=== PATIENT | female | born 1965 | race Caucasian/White ===

== ENCOUNTER 2016-04-29 20:12 | Emergency (ER) | payer BC ==
[2016-04-29 20:27] VITALS: BP 127/78
--- NOTE | 2016-04-29 20:47 | UC ---
Throat Pain/Nasal Per HPI - HPI Summary HPI Summary: ST and chills and malaise today. No known Strep contacts. Recent diagnosis of pancreatic failure and Type I DM, but hasn't been able to tolerate insulin. No measured fevers today. Was told by her doctor to "get right in to be seen if you have any signs of infection." - History of Current Complaint Chief Complaint: UCGeneralIllness Stated Complaint: THROAT Time Seen by Provider: 04/29/16 20:16 Hx Obtained From: Patient Hx Last Menstrual Period: 03/02/14 Onset/Duration: Gradual Onset, Lasting Days - 1 Severity: Mild Cough: None Associated Signs & Symptoms: Positive: Dysphagia, Hoarseness, Fever - subjective. Negative: FB Sensation, Drooling, Sinus Discomfort, Nasal Discharge , Vomiting, Rash - Epiglottits Risk Factors Epiglottis Risk Factors: Negative - Allergies/Home Medications Allergies/Adverse Reactions: Allergies Allergy/AdvReac Type Severity Reaction Status Date / Time Penicillins Allergy Intermediate Hives Verified 02/17/16 11:17 Azithromycin [From Zithromax] Allergy Hives Verified 04/29/16 20:28 Insulin Glargine Allergy Hives Verified 04/29/16 20:28 [From Lantus] Metformin Allergy Hives Verified 04/29/16 20:28 Home Medications: Home Medications glipiZIDE TAB* [Glucotrol TAB*] 5 mg PO DAILY 04/29/16 [History Confirmed ] PMH/Surg Hx/FS Hx/Imm Hx Endocrine History Of: Reports: Diabetes Respiratory History Of: Reports: Asthma - Surgical History Surgical History: Yes Surgery Procedure, Year, and Place: LEFT BREAST BIOPSY. C SECTIONS X'S 2 - Family History Known Family History: Positive: Cardiac Disease - mother has had bypass and stroke - Social History Occupation: Employed Full-time Lives: With Family Alcohol Use: None Substance Use Type: None Smoking Status (MU): Never Smoked Tobacco Household Exposure Type: Cigarettes Review of Systems Constitutional: Fever, Chills, Fatigue Skin: Negative Eyes: Negative ENT: Sore Throat Respiratory: Negative Cardiovascular: Negative Gastrointestinal: Negative Genitourinary: Negative Motor: Negative Neurovascular: Negative Musculoskeletal: Myalgia Neurological: Negative Psychological: Negative All Other Systems Reviewed And Are Negative: Yes Physical Exam Triage Information Reviewed: Yes Appearance: Well-Appearing, No Pain Distress, Well-Nourished Vital Signs: Initial Vital Signs Temp 99.3 F 04/29/16 20:19 Pulse 95 04/29/16 20:19 Resp 16 04/29/16 20:19 BP 127/78 04/29/16 20:19 Pulse Ox 99 04/29/16 20:19 Vital Signs Reviewed: Yes Eye Exam: Normal ENT Exam: Normal ENT: Positive: Hearing grossly normal, Pharyngeal erythema, TMs normal. Negative: Tonsillar swelling, Tonsillar exudate, Trismus, Muffled/hoarse voice Neck exam: Normal Neck: Positive: Supple Respiratory Exam: Normal Respiratory: Positive: Lungs clear, Normal breath sounds, No respiratory distress Musculoskeletal Exam: Normal Neurological Exam: Normal Psychological Exam: Normal Skin Exam: Normal Diagnostics - Laboratory Diagnostic Studies Completed/Ordered: Strep pos Throat Pain/Nasal Course/Dx - Differential Dx/Diagnosis Provider Diagnoses: Strep throat Discharge - Discharge Plan Condition: Stable Disposition: HOME Prescriptions: Cephalexin CAP* [Keflex CAP*] 500 mg PO TID #30 cap Patient Education Materials: Strep Throat (ED) Referrals: Erinn Blair MD [Primary Care Provider] -
[2016-04-29] MEDS ORDERED: Cephalexin CAP* 500 MG PO ONE (20:50)
== END 2016-04-29 21:05 | disposition home or self-care (01) ==
LOC: UCCORT 20:12
DX: J02.0 Streptococcal pharyngitis (principal); Z88.1 Allergy status to other antibiotic agents; Z88.0 Allergy status to penicillin; Z88.8 Allergy status to other drugs, medicaments and biological substances; Z77.22 Contact with and (suspected) exposure to environmental tobacco smoke (acute) (chronic)
CPT/HCPCS: 87651; 99212; A9270-GY; G0463

== ENCOUNTER 2018-03-26 17:05 | Emergency (ER) | payer BC ==
[2018-03-26 17:32] VITALS: BP 123/82
--- NOTE | 2018-03-26 18:12 | UC ---
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 " -she has long standing hirostry of asthma but hasnt taken her prescribed maintenance dose of advair in a long time bc she doesnt like to take meds. she has alb but needs a RF. states she hasnt used that in a long time either as she is trying to be good about not using her medication. -denies feeling sick in any other way. no f/c. no wheezing. tight dry cough. + continious nightt rupesh cough x several months. no sinus pain/pressure. no ST. no ear pain. 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 takes januvia. BSs well controlled she repiorts but prone to yeast infections bc of this. usually treated well w/ diflcuan. denies risk of STD. - History of Current Complaint Chief Complaint: UCGeneralIllness Stated Complaint: COUGH AND PERSONAL Time Seen by Provider: 03/26/18 18:03 Hx Last Menstrual Period: 03/02/14 Pain Intensity: 8 - Allergies/Home Medications Allergies/Adverse Reactions: Allergies Allergy/AdvReac Type Severity Reaction Status Date / Time MS Penicillins [Penicillins] Allergy Intermediate Hives Verified 03/26/18 17:32 MS Azithromycin Allergy Hives Verified 03/26/18 17:32 [From Zithromax] MS Insulin Glargine Allergy Hives Verified 03/26/18 17:32 [From Lantus] MS Metformin [Metformin] Allergy Hives Verified 03/26/18 17:32 Home Medications: Home Medications Lisinopril [Lisinopril 2.5 MG-] 2.5 mg PO DAILY 03/26/18 [History Confirmed 02/01] Sitagliptin Phosphate [Januvia] 50 mg PO DAILY 03/26/18 [History Confirmed 03/26] PMH/Surg Hx/FS Hx/Imm Hx Previously Healthy: Yes Endocrine History: Diabetes Respiratory History: Asthma - Surgical History Surgical History: Yes Surgery Procedure, Year, and Place: LEFT BREAST BIOPSY. C SECTIONS X'S 2 - Family History Known Family History: Positive: Cardiac Disease - mother has had bypass and stroke - Social History Alcohol Use: None Substance Use Type: None Smoking Status (MU): Never Smoked Tobacco Household Exposure Type: Cigarettes Review of Systems All Other Systems Reviewed And Are Negative: Yes Constitutional: Positive: Negative Skin: Positive: Negative Eyes: Positive: Negative ENT: Positive: Negative Respiratory: Positive: Cough Cardiovascular: Positive: Negative Gastrointestinal: Positive: Negative Genitourinary: Positive: Negative Motor: Positive: Negative Neurovascular: Positive: Negative Musculoskeletal: Positive: Negative Neurological: Positive: Negative Psychological: Positive: Negative Is Patient Immunocompromised?: No Physical Exam Triage Information Reviewed: Yes Appearance: Ill-Appearing - bc of moderate cough. very pleasnat. no stridor Vital Signs: Initial Vital Signs Temp 97.5 F 03/26/18 17:29 Pulse 91 03/26/18 17:29 Resp 20 03/26/18 17:29 BP 123/82 03/26/18 17:29 Pulse Ox 99 03/26/18 17:29 Vital Signs Reviewed: Yes ENT Exam: Normal ENT: Positive: Pharynx normal, TMs normal, Uvula midline. Negative: Nasal congestion, Nasal drainage, Tonsillar swelling, Tonsillar exudate, Hoarse voice , Sinus tenderness Neck exam: Normal Neck: Positive: Supple, Nontender, No Lymphadenopathy Respiratory: Positive: Lungs clear, No respiratory distress, No accessory muscle use, Decreased breath sounds - mild b/l. Negative: Crackles, Rhonchi, Stridor, Wheezing Cardiovascular Exam: Normal Cardiovascular: Positive: RRR, No Murmur, Pulses Normal Abdomen Description: Positive: Nontender, Soft Pelvic Exam: Positive: Other - deferred Musculoskeletal Exam: Normal Neurological Exam: Normal Psychological Exam: Normal Skin Exam: Normal UC Diagnostic Evaluation - Laboratory O2 Sat by Pulse Oximetry: 99 Respiratory Course/Dx - Course Course Of Treatment: ASthma - long discussion educating her on asthma treatment. I dont think she has an exacerbation. if anything a viral URI. I suspect this is her baselien asthma that has been untreated for months. restart advair at 250, she is uncertain what dose she was prescribed in past. she should f/u with her PCP for PFTs, possible CXR and determination of appropriate dose for her - Differential Dx/Diagnosis Differential Diagnosis/HQI/PQRI: Asthma, Bronchitis, Sinusitis Provider Diagnosis: Asthma Discharge - Sign-Out/Discharge Documenting (check all that apply): Patient Departure All imaging exams completed and their final reports reviewed: No Studies - Discharge Plan Condition: Stable Disposition: HOME Prescriptions: Albuterol HFA INHALER* [Ventolin HFA Inhaler*] 2 puff INH Q4H PRN #1 mdi PRN Reason: Sob/Wheezing Albuterol HFA INHALER* [Ventolin HFA Inhaler*] 2 puff INH Q4H PRN 30 Days #1 mdi PRN Reason: Cough Fluconazole [Diflucan] 150 mg PO ONCE #1 tab Fluticasone-Salmeterol 250-50* [Advair Diskus 250-50*] 1 puff INH BID 30 Days # 1 diskus Patient Education Materials: Asthma (ED), Yeast Infection (ED) Referrals: Erinn Blair MD [Primary Care Provider] - Additional Instructions: -We talked about the importance of daily maintenance of inhalers for your lung health. This is the advair. You were not certain what dose of advair you were prescribed in the past so you should follow up with your primary care doctor to determine what the appropriate dose is for you. Make sure you risne your mouth out every use. The albuterol is loraine resuce inhaler that is used when the advair does not control your daily symptoms. - Billing Disposition and Condition Condition: STABLE Disposition: Home
== END 2018-03-26 18:46 | disposition home or self-care (01) ==
LOC: UCCORT 17:05
DX: J45.909 Unspecified asthma, uncomplicated (principal); Z88.0 Allergy status to penicillin; Z88.1 Allergy status to other antibiotic agents; Z88.8 Allergy status to other drugs, medicaments and biological substances; Z79.84 Long term (current) use of oral hypoglycemic drugs
CPT/HCPCS: 99212; G0463

== ENCOUNTER 2018-12-09 18:36 | Emergency (ER) | payer BC ==
--- OUTSIDE RECORDS SUMMARY | 2018-12-09 18:44 | XMS REPORT | Continuity of Care Document ---
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 Problems Active Problems Provider Date Restless legs Erinn Blair MD Onset: 09/21/2009 Allergic asthma without status asthmaticus Erinn Blair MD Onset: 2005 Heartburn Erinn Blair MD Onset: 07/18/2005 Obesity Erinn Blair MD Onset: 07/18/2005 Herpesviral vesicular dermatitis Erinn Blair MD Onset: 04/10/2017 Mild intermittent asthma Erinn Blair MD Onset: 07/15/2016 Type 2 diabetes mellitus Ernin Blair MD Onset: 06/06/2016 Mild intermittent asthma Erinn Blair MD Onset: 02/09/2015 History of dysplasia of cervix Erinn Blair MD Onset: 02/09/2015 Social History Type Date Description Comments Sex Unknown Tobacco Use Start: Unknown Never Smoked Cigarettes ETOH Use Occasionally consumes alcohol Tobacco Use Start: Unknown Patient has never smoked Recreational Drug Use Denies Drug Use Exercise Type/Frequency Exercises sporadically walks most days; 02/09/15 counselled 150min per week, 10k steps per day [facility] Allergies, Adverse Reactions, Alerts Active Allergies Reaction Severity Comments Date Amoxicillin 04/08/2014 Clindamycin HIVES 02/09/2015 Lantus Urticaria Severe 04/18/2016 Metformin Urticaria Severe 04/18/2016 Azithromycin 05/07/2018 Latex Hives Moderate 08/11/2018 Medications Active Medications SIG Qnty Indications Ordering Date Provider BD Pen use with trulicity 12units Johnnie, 11/08/2018 Needle/Anisa/Ultra MD Erinn -Fine/32G X 4mm 32G X 4 mm Misc Trulicity inject 0.75 mg 1.5ml E11.9 Johnnie, 08/11/2018 subcutaneously once MD Erinn 0.75mg/0.5ML weekly Solution Pen-Inject E11.65 Pen [place] 05/29" use as directed 12units E11.9 Erinn Blair MD 08/11 31G once weekly with X 5 mm Misc trulicity sc Pravastatin Sodium 1 by mouth daily 90tabs E11.65 Erinn Blair MD 10mg Tablets Freestyle Lancets Test Daily And as 100units E11.65 Erinn Blair MD 06/27/2018 0 Needed Glipizide take 1 tablet by 90tabs E11.65 Erinn Blair MD 05/17/2018 10mg mouth every Tablets morning E11.9 Benazepril HCL 1 by mouth daily 90tabs E11.9 Erinn Blair MD 2018 5mg in the morning Tablets Januvia 1 by mouth every 90tabs E11.9 Erinn Blair MD 04/16/2018 100mg Tablets day in them morning E11.65 Freestyle Lite Test use as directed 100units E11.9 Erinn Blair, 04/10 once a day and as Strips needed Famciclovir 3 by mouth once 3tabs B00.1 Erinn Blair, 08/22/2016 500mg within 24 hours of Tablets cold sore Freestyle Lite Blood Use as Directed 100units E11.9 Erinn Blair, Glucose Once A Days And as 0 Strips Needed Lancet Device With test daily and as 1units E11.9 Erinn Blair, 2016 Ejector needed. MD Guzman Lancets Super Thin test daily and as 100units E11.9 Erinn Blair, 28G needed MD Lozano 28G [facility] Freestyle Lite Test test daily and as 100units E11.9 Erinn Blair, directed. Strips Calcium Carbonate 1 po qd Z01.411 Erinn Blair, 12/11/2005 1250mg/5ML Suspension Albuterol Sulfate 1 vial via 45units J45.20 Unknown nebulizer every (2.5mg/3ML) 0.083% 4-6 hours as Nebulizer needed wheezing Advair Diskus 1 puff twice a day J45.20 Unknown 250-50mcg/Dose Aerosol History Medications BD Ultra Fine Pen inject trulicity 12units E11.9 Erinn Blair, 2018 - [place] weekly sc 11/08/2018 Oseltamivir 1 by mouth twice 14caps J09.x2 Erinn Blair, 07/12/2018 - Phosphate a day 07/19/2018 75mg Capsules Contrave 1 po daily for 1 120tabs E66.9 Erinn Blair, 06/04/2018 - 8-90mg week, 1 po bid 06/05/2018 Tablets ER 12HR for 1 week, 2 in am 1 in pm for 1 week then 2 po bid; both doses before 5pm E11.65 Immunizations CPT Code Status Date Vaccine Reaction Lot # [id number] Given 08/25/2018 Shingrix (Shingles) Zoster Vaccine savage at pharmacy HZV, Recombinant, Subunit, Adj 62769 Given 12/07/2017 Influenza Virus Vaccine,Quadrivalent,Split,Preserv Free, 0.5mL,Im Q2039 Given 11/28/2016 Flu Vaccine NOS per pt Q2037 Given 01/13/2015 Fluvirin Immunization 24955 Given 11/24/2011 Pneumococcal 23 Immunization Adult Or Immunosuppressed Patient 55538 Given 11/21/2011 Afluria Or Fluvirin Flu Vac Intramuscular 59215 Given 12/27/2010 Tdap (Adacel) Ages 7 And Above Only 42935 Given 12/27/2010 Afluria Or Fluvirin Flu Vac Intramuscular 75695 Given 11/30/2001 Immunization Td 7 Yrs Or Older 59651 Given Unknown Influenza Virus, 6-35 Months Dosage For Intramuscular Or Jet Q2039 Refused 11/08/2018 Flu Vaccine NOS will get at pharmacy 77324 Refused 05/07/2018 Shingrix (Shingles) Zoster Vaccine will get at pharmacy HZV, Recombinant, Subunit, Adj 15176 Refused 04/08/2016 Influenza Virus Vaccine,Quadrivalent,Split,Preserv Free, 0.5mL,Im Vital Signs Date Vital Result Comment 11/08/2018 9:36am Weight 172.00 lb Heart Rate 78 /min BP Systolic 112 mmHg BP Diastolic 76 mmHg Respiratory Rate 16 /min Height 60.5 inches 5'0.50" BMI (Body Mass Index) 33.0 kg/m2 08/11/2018 3:33pm Weight 169.00 lb Heart Rate 70 /min BP Systolic 112 mmHg BP Diastolic 72 mmHg Respiratory Rate 17 /min Height 60.5 inches 5'0.50" BMI (Body Mass Index) 32.5 kg/m2 Results Test Date Facility Test Result H/L Range Note Comprehensive Met 08/14/2018 [facility] Glucose 114 mg/ dL High 74-106 1 Panel-[facility]CMG (315)- - BUN 13 mg/dL Normal 7-18 Creatinine 0.8 mg/dL Normal 0.6-1.3 Glom Filtration Rate, Estimate >60 mL/min >60 If >60 mL/min >60 2 BUN/Creat 16.2 ratio Sodium 137 mmol/L Normal 136-145 Potassium 4.2 mmol/L Normal 3.5-5.1 Chloride 106 mmol/L Normal 98-107 Carbon Dioxide 25 mmol/L Normal 21-32 Anion Gap 6 mEq/L Low 8-16 Calcium 9.2 mg/dL Normal 8.5-10.1 Total Protein 8.3 g/dL High 6.4-8.2 Albumin 3.8 g/dL Normal 3.4-5.0 Globulin 4.5 g/dL High 1.9-4.3 Alb/Glob 0.8 ratio Bilirubin,Total 0.5 mg/dL Normal 0.2-1.0 Sgot/Ast 26 U/L Normal 15-37 SGPT/Alt 47 U/L Normal 12-78 Alkaline Phosphatase 106 U/L Normal 45-117 Lipid 08/14/2018 [facility] Cholesterol 161 mg/dL < 200 3 (315)- - Triglycerides 92 mg/dL <150 4 HDL Cholesterol 42 mg/dL >40 5 LDL-Cholesterol 101 mg/dL < 100 6 Hemoglobin A1c 08/14/2018 [facility] Glycohemoglobin (A1c ) 6.6 % High 4.2-6.3 7 (315)- - eAG 143 mg/dL Throat PO Culture -RL 07/12/2018 [facility] Throat PO Culture negative 8 1 E11.65 2 Note: Persistent reduction for 3 months or more in an eGFR <60 mL/min/1.73 m2 defines CKD. Patients with eGFR values >/=60 mL/min/1.73 m2 may also have CKD if evidence of persistent proteinuria is present. The original MDRD equation for estimated GFR is not valid for patients less than 18 years of age. Additional information may be found at www.kdoqi.org. 3 Reference Guidelines*: Desirable: ........... < 200 mg/dL Borderline High: ..... 200-239 mg/dL High: ................ >= 240 mg/dL * The National Cholesterol Education Program (NCEP) 4 Reference Guidelines*: Normal: ............. < 150 mg/dL Borderline High: .... 150-199 mg/dL High: ............... 200-499 mg/dL Very High: .......... > 500 mg/dL * Source: National Cholesterol Education Program (NCEP) 5 Reference Guidelines*: Low HDL: ..... < 40 mg/dL Normal: ..... 40-60 mg/dL Desirable: ... > 60 mg/dL *The National Cholesterol Education Program(NCEP) 6 Reference Guidelines*: Optimal:........... <100 mg/dL Near Optimal....... 100-129 mg/dL Borderline High.... 130-159 mg/dL High............... 160-189 mg/dL Very High.......... >=190 mg/dL * Source: National Cholesterol Education Program (NCEP) 7 Elevated levels of HbA1c suggest the need for more aggressive treatment of glycemia. The [place] [employer] recommends that a primary goal of therapy should be a HbA1c of <7% and that physicians should re-evaluate the treatment regimen in patients with HbA1c values consistently >8%. 8 SPECIMEN DESCRIPTION THROAT SWAB CULTURE RESULTS NORMAL THROAT YOU NEGATIVE FOR BETA HEMOLYTIC STREPTOCOCCI GROUPS A,C OR G. REPORT STATUS FINAL 07/14/2018 Unless otherwise specified, testing performed by [facility] [address] [place] [id number] Procedures Date Code Description Status 08/11/2018 83589 Electrocardiogram Complete Completed 07/12/2018 41405 Measure Blood Oxygen Level Single Determination Completed 04/13/2018 17148463 Mammogram Completed 11/13/2016 48829321 Colonoscopy Completed Medical Devices Description No Information Available Encounters Type Date Location Provider Dx Diagnosis Office Visit 08/11/2018 [facility] Erinn Blair, E11.65 Type 2 diabetes 3:00p mellitus with hyperglycemia E11.9 Type 2 diabetes mellitus without complications E66.9 Obesity, unspecified Z68.32 Body mass index (BMI) 32.0-32.9, adult Office Visit 07/12/2018 10:15a [facility] Erinn Blair MD J09.x2 Flu due to ident novel influenza A virus w oth resp manifest E66.9 Obesity, unspecified E11.9 Type 2 diabetes mellitus without complications J02.9 Acute pharyngitis, unspecified Z68.31 Body mass index (BMI) 31.0-31.9, adult Office Visit 06/04/2018 4:15p [facility] Erinn Blair MD E11.65 Type 2 diabetes mellitus with hyperglycemia E66.9 Obesity, unspecified T75.3xxA Motion sickness, initial encounter Z68.32 Body mass index (BMI) 32.0-32.9, adult Assessments Date Code Description Provider 11/08/2018 E11.65 Type 2 diabetes mellitus with hyperglycemia Erinn Blair MD 11/08/2018 E11.9 Type 2 diabetes mellitus without Erinn Blair MD complications 11/08/2018 E66.9 Obesity, unspecified Erinn Blair MD 11/08/2018 J45.20 Mild intermittent asthma, uncomplicated Erinn Blair MD 11/08/2018 G25.81 Restless legs syndrome Erinn Blair MD 11/08/2018 B00.1 Herpesviral vesicular dermatitis Erinn Blair MD 11/08/2018 Z68.33 Body mass index (BMI) 33.0-33.9, adult Erinn Blair MD 08/11/2018 E11.65 Type 2 diabetes mellitus with hyperglycemia Erinn Blair MD 08/11/2018 E11.9 Type 2 diabetes mellitus without Erinn Blair MD complications 08/11/2018 E66.9 Obesity, unspecified Erinn Blair MD 08/11/2018 Z68.32 Body mass index (BMI) 32.0-32.9, adult Erinn Blair MD 07/12/2018 J09.x2 Influenza due to identified novel influenza Erinn Blair MD A virus with oth 07/12/2018 E66.9 Obesity, unspecified Erinn Blair MD 07/12/2018 E11.9 Type 2 diabetes mellitus without Erinn Blair MD complications 07/12/2018 J02.9 Acute pharyngitis, unspecified Erinn Blair MD 07/12/2018 Z68.31 Body mass index (BMI) 31.0-31.9, adult Erinn Blair MD 06/04/2018 E11.65 Type 2 diabetes mellitus with hyperglycemia Erinn Blair MD 06/04/2018 E66.9 Obesity, unspecified Erinn Blair MD 06/04/2018 T75.3xxA Motion sickness, initial encounter Erinn Blair MD 06/04/2018 Z68.32 Body mass index (BMI) 32.0-32.9, adult Erinn Blair MD Plan of Treatment Future Appointment(s):02/01/2019 4:00 pm - Erinn Blair MD at [facility]2018 - Erinn Blair MDE11.65 Type 2 diabetes mellitus with hyperglycemiaNew Labs:Comprehensive Met Panel-[facility], Ordered: 11/08/18Hemoglobin A1c, Ordered: 11/08/18Comprehensive Met Panel-[facility], Scheduled: Hemoglobin A1c, Scheduled: 01/31/19Comments:DM--You have worse control per fingerstick readings at this time, continue meds. restart trulicity check labs she has weight gain, let's work on diet/exercise trulicity, once weekly subcut injection,cautoined gi side effects, pancreatitis , but likely to help appetitecontinue januvia 100mg daily for now continue the glipizide, but if fs are under 100, call me to reduce the dose. Goal are fs 80 - 130check fs 2 hours after a meal goal under 140. If you star thaving lows or highs, return to daily testing. reviewed signs sxs of high and low sugars and how to treat , call if happening more than 1 every few weeks. Please bring a copy of your fingerstick readings to every visit. Also recommend she start statins, per 2018 AHA guidelines, diabetic over age 50 should be on statins due to cardiovascualrrisks , start pravastatin 10mg daily ,cautioned risks for muscle aches and liver effects, will monitor with labs Continue to target hgba1c < 8Continue to target ldl < 100. Continue to target bloodpressure < 130/80.Please check your feet daily. Please see the optho/eye doc annuallyFollow up:labs today with chol ; next visit in 80-90 days fu diabetes nonfasting labs 5 dya ubysptM91.9 Type 2 diabetes mellitus without complicationsNew Labs:Lipid, Ordered: CPK, Ordered: 11/08/18E66.9 Obesity, unspecifiedComments:continue to work on diet, exercise, weight loss reports isseus with feet hurting. advised to do half of what she expected to do for 2 weeks then build slowly.J45.20 Mild intermittent asthma, uncomplicatedComments:stable cont meds get flu vaxG25.81 Restless legs ipzbvggsN29.1 Herpesviral vesicular fgixsbttsgS35.33 Body mass index (BMI) 33.0-33.9, adultComments:recommend reduced calorie diet, regular exercise and weight lossAllNew Medication:BD Pen Needle/Anisa/Ultra -Fine/32G X 4mm 32 G X 4 mm - use with trulicity Functional Status Description No Information Available Mental Status Description No Information Available Referrals Refer to Reason for Referral Status Appt Date Hermes Jeong DR due for dm eye exam 06/2018 FAXED 07/05 Patient Declined APPT SCHEDULED WITH [facility] -PATRICIA CALLED PT, AWARE OF APPT DATE, TIME AND LOCATION -PATRICIA [address] [place] [id number] [phone]
--- NOTE | 2018-12-09 21:07 | UC ---
Respiratory Complaint HPI - HPI Summary HPI Summary: 53 yo diabetic with 6 days of cough, congestion and inital fever. Has not had a fever since last weekend; comes in today because she cannot stop coughing. uses advair for asthma, does not use albuterol. Chest is sore from coughing. - History of Current Complaint Chief Complaint: UCGeneralIllness Stated Complaint: COUGH Time Seen by Provider: 12/09/18 20:56 Hx Obtained From: Patient Hx Last Menstrual Period: none Onset/Duration: Gradual Onset, Lasting Days Timing: Intermittent Episodes Severity Initially: Moderate Severity Currently: Moderate Pain Intensity: 8 Character: Cough: Nonproductive Aggravating Factors: Recumbent Position Alleviating Factors: OTC Meds, Upright Position Associated Signs And Symptoms: Positive: Nasal Congestion, Sinus Discomfort - Risk Factors Pulmonary Embolism Risk Factors: Negative Cardiac Risk Factors: Hypertension, Diabetes Pseudomonas Risk Factors: Negative Tuberculosis Risk Factors: Negative - Allergies/Home Medications Allergies/Adverse Reactions: Allergies Allergy/AdvReac Type Severity Reaction Status Date / Time azithromycin Allergy Hives Verified 12/09/18 19:56 insulin glargine Allergy Hives Verified 12/09/18 19:56 [From Lantus U-100 Insulin] metformin Allergy Hives Verified 12/09/18 19:56 Penicillins Allergy Hives Verified 12/09/18 19:56 Home Medications: Home Medications Benazepril HCl 5 mg PO DAILY 12/09/18 [History Confirmed 12/09/18] Dulaglutide [Trulicity] 0.75 mg SQ 12/09/18 [History] Pravastatin (NF) [Pravachol (NF)] 10 mg PO 1700 12/09/18 [History Confirmed ] glipiZIDE [Glipizide] 10 mg PO DAILY 12/09/18 [History Confirmed 12/09/18] PMH/Surg Hx/FS Hx/Imm Hx Endocrine History: Diabetes Respiratory History: Asthma - Surgical History Surgical History: Yes Surgery Procedure, Year, and Place: LEFT BREAST BIOPSY. 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 Eyes: Positive: Negative ENT: Positive: Sore Throat, Sinus Congestion Respiratory: Positive: Cough Cardiovascular: Positive: Chest Pain - from coughing. Negative: Palpitations Gastrointestinal: Positive: Other - decresased appetite.. Negative: Vomiting, Diarrhea Physical Exam Triage Information Reviewed: Yes Appearance: Ill-Appearing - looks fatigued., Obese Vital Signs: Initial Vital Signs Temp 97.9 F 12/09/18 20:02 Pulse 78 12/09/18 20:02 Resp 20 12/09/18 20:02 BP 128/86 12/09/18 20:02 Pulse Ox 100 12/09/18 20:02 Eyes: Positive: Conjunctiva Clear ENT: Positive: Pharyngeal erythema, TMs normal Neck: Positive: Supple, Nontender, No Lymphadenopathy Respiratory: Positive: Lungs clear, Normal breath sounds, No accessory muscle use Cardiovascular: Positive: RRR, No Murmur Musculoskeletal Exam: Normal Neurological Exam: Normal Neurological: Positive: Alert Psychological Exam: Normal Skin Exam: Normal Respiratory Course/Dx - Course Course Of Treatment: No signs of bacterial illness. Continue advair and add prednisone, tessalon perles. - Differential Dx/Diagnosis Differential Diagnosis/HQI/PQRI: Asthma, Bronchitis, Sinusitis Provider Diagnosis: Cough Discharge ED - Sign-Out/Discharge Documenting (check all that apply): Patient Departure All imaging exams completed and their final reports reviewed: No Studies - Discharge Plan Condition: Stable Disposition: HOME Prescriptions: Benzonatate CAP* [Tessalon 100 MG CAP*] 100 mg PO TID PRN #30 cap PRN Reason: Cough predniSONE [Prednisone 20 MG TAB] 20 mg PO DAILY #4 tablet Patient Education Materials: Upper Respiratory Infection (ED) Referrals: Erinn Blair MD [Primary Care Provider] - Additional Instructions: You have a persistent cough although the rest of the viral respiratory symptoms are resolving. Use prednisone daily x 4 more days, but you can stop if the cough improves quickly or your blood sugars increase. Use tessalon perles for cough suppression. You might try homeopathic Zarbee's lozenges which are meant to improve sleep and to suppress cough. - Billing Disposition and Condition Condition: STABLE Disposition: Home
[2018-12-09] MEDS ORDERED: predniSONE TAB* 20 MG PO ONE (21:10)
[2018-12-09] MEDS ORDERED: Benzonatate CAP* 100 MG PO ONE (21:11)
[2018-12-09] MEDS ORDERED: Benzonatate CAP* 100 MG ONE (21:17)
[2018-12-09 21:26] VITALS: BP 118/85
== END 2018-12-09 21:30 | disposition home or self-care (01) ==
LOC: UCCORT 18:36
DX: R05 Cough (principal); E11.9 Type 2 diabetes mellitus without complications; J45.909 Unspecified asthma, uncomplicated
CPT/HCPCS: 99213; A9270-GY; G0463; J7512